=== PATIENT | male | born 1985 | race African-American/Black ===

== ENCOUNTER 2016-06-12 00:32 | Emergency (ER) | payer MEDICAID ==
[~2016-06-12] VITALS: Ht 170.2 cm; Wt 68.0 kg
[2016-06-12 01:38] LABS: BASOPHILS % 0.9 % (0.0-2.0); DIFFERENTIAL COMMENT 0; EOSINOPHILS % 0.6 % (0.0-5.0); HEMATOCRIT. 38.9 % (42.0-52.0); LYMPHOCYTES % 25.5 % (20.0-50.0); MEAN CORPUSCULAR HEMOGLOBIN 33.7 pg (28.0-32.0); MEAN CORPUSCULAR HGB CONC 33.4 g/dL (31.0-37.0); MEAN CORPUSCULAR VOLUME 100.8 fL (80.0-94.0); MEAN PLATELET VOLUME 8.4 fl (7.4-10.4); MONOCYTES % 6.4 % (2.0-8.0); NEUTROPHILS % 66.6 % (40.0-76.0); PLATELET 228 x1000/uL (130-400); RED BLOOD CELL COUNT 3.86 mill/uL (4.7-6.1); RED CELL DISTRIBUTION WIDTH 14.3 % (11.6-14.6)
[2016-06-12 01:42] LABS: CHLORIDE 104 mEq/L (98-107); INDEX HEMOLYSI 1 (1-3); INDEX ICTERIC 1 (1-4); INDEX LIPEMIC 1 (1-3)
[2016-06-12 01:49] LABS: ANION GAP 11; CALCIUM 8.5 mg/dL (8.5-10.1); CARBON DIOXIDE 28 mEq/L (21-32); UREA NITROGEN BLOOD 19 mg/dL (7-21); eGFR > 60 mL/min (>60)
[2016-06-12 07:30] VITALS: BP 124/60
== END 2016-06-12 10:17 | disposition home or self-care (01) ==
LOC: ER 00:32
DX: M79.602 Pain in left arm (principal); R10.9 Unspecified abdominal pain; R07.9 Chest pain, unspecified; M79.601 Pain in right arm; M79.605 Pain in left leg; M79.604 Pain in right leg; F12.10 Cannabis abuse, uncomplicated
CPT/HCPCS: 36415; 80048; 85025; 99284

== ENCOUNTER 2016-06-12 20:26 | Emergency (ER) | payer MEDICAID ==
[~2016-06-12] VITALS: Ht 170.2 cm; Wt 70.0 kg
[2016-06-12] MEDS ORDERED: SODIUM CHLORIDE 0.9% 1,000 ML IV ONE (21:20)
[2016-06-12 21:30] VITALS: BP 117/70
[2016-06-12] MEDS ORDERED: HYDROCODONE/ACETAMINOPHEN 5/325MG TABLET PO ONE (21:30)
[2016-06-12 21:43] LABS: BASOPHILS % 0.8 % (0.0-2.0); DIFFERENTIAL COMMENT 0; EOSINOPHILS % 0.2 % (0.0-5.0); HEMATOCRIT. 38.4 % (42.0-52.0); MEAN CORPUSCULAR HEMOGLOBIN 34.3 pg (28.0-32.0); MEAN CORPUSCULAR HGB CONC 33.8 g/dL (31.0-37.0); MEAN CORPUSCULAR VOLUME 101.5 fL (80.0-94.0); MEAN PLATELET VOLUME 8.4 fl (7.4-10.4); MONOCYTES % 8.2 % (2.0-8.0); NEUTROPHILS % 68.8 % (40.0-76.0); PLATELET 242 x1000/uL (130-400); RED BLOOD CELL COUNT 3.79 mill/uL (4.7-6.1); RED CELL DISTRIBUTION WIDTH 14.4 % (11.6-14.6); WHITE BLOOD COUNT 10.6 x1000/uL (4.5-11.0)
[2016-06-12 21:59] LABS: ALANINE AMINOTRANSFERASE 29 IU/L (13-61); ANION GAP 13; CALCIUM 8.7 mg/dL (8.5-10.1); CARBON DIOXIDE 28 mEq/L (21-32); CHLORIDE 102 mEq/L (98-107); INDEX HEMOLYSI 1 (1-3); INDEX ICTERIC 1 (1-4); INDEX LIPEMIC 1 (1-3); UREA NITROGEN BLOOD 13 mg/dL (7-21); eGFR > 60 mL/min (>60)
[2016-06-12 22:09] LABS: VALPROIC ACID < 3.0 ug/mL (50-100)
[2016-06-13] MEDS ORDERED: LEVETIRACETAM 500MG TABLET PO ONE (01:30)
== END 2016-06-13 03:44 | disposition home or self-care (01) ==
LOC: ER 20:27
DX: G40.909 Epilepsy, unspecified, not intractable, without status epilepticus (principal); M25.532 Pain in left wrist; R51 Headache; M79.672 Pain in left foot; W19.XXXA Unspecified fall, initial encounter; Y93.89 Activity, other specified; Y92.89 Other specified places as the place of occurrence of the external cause; Y99.9 Unspecified external cause status
CPT/HCPCS: 36415; 70450; 70486; 71010; 73110; 73630; 80053; 80165; 85025; 93005; 99285; J7030; Z7610

== ENCOUNTER 2016-06-23 01:37 | Emergency (ER) | payer MEDICAID ==
[~2016-06-23] VITALS: Ht 177.8 cm; Wt 72.0 kg
[2016-06-23] MEDS ORDERED: KETOROLAC 60MG/2ML VIAL IM ONE (05:00)
[2016-06-23] MEDS ORDERED: CYCLOBENZAPRINE 10MG TABLET PO ONE (05:00)
[2016-06-23] MEDS ORDERED: IBUPROFEN 600MG TABLET PO ONE (11:45)
[2016-06-23 12:14] VITALS: BP 112/81
== END 2016-06-23 13:02 | disposition home or self-care (01) ==
LOC: ER 01:55
DX: R51 Headache (principal); M25.522 Pain in left elbow; M79.641 Pain in right hand; G40.909 Epilepsy, unspecified, not intractable, without status epilepticus; F41.9 Anxiety disorder, unspecified; F17.210 Nicotine dependence, cigarettes, uncomplicated; F12.10 Cannabis abuse, uncomplicated; Z59.0 Homelessness
CPT/HCPCS: 73080; 73130; 96372; 99284; J1885

== ENCOUNTER 2016-06-23 20:07 | Emergency (ER) | payer MEDICAID ==
[~2016-06-23] VITALS: Ht 175.3 cm; Wt 75.0 kg
[2016-06-23 20:22] VITALS: BP 122/83
[2016-06-23] MEDS ORDERED: LEVETIRACETAM 500MG TABLET PO ONE (22:30)
== END 2016-06-23 22:47 | disposition left against medical advice (07) ==
LOC: ER 20:07
DX: Z04.8 Encounter for examination and observation for other specified reasons (principal); F41.9 Anxiety disorder, unspecified; F31.9 Bipolar disorder, unspecified; G40.909 Epilepsy, unspecified, not intractable, without status epilepticus; F12.10 Cannabis abuse, uncomplicated; Z59.0 Homelessness; Z91.14 Patient's other noncompliance with medication regimen
CPT/HCPCS: 99283

== ENCOUNTER 2016-10-31 22:33 | Emergency (ER) | payer MEDICAID ==
[~2016-10-31] VITALS: Ht 170.2 cm; Wt 69.9 kg
[2016-10-31 22:44] VITALS: BP 118/79
== END 2016-10-31 23:32 | disposition left against medical advice (07) ==
LOC: ER 22:44
DX: F41.9 Anxiety disorder, unspecified (principal); Z53.21 Procedure and treatment not carried out due to patient leaving prior to being seen by health care provider

== ENCOUNTER 2017-04-05 05:14 | Emergency (ER) | payer MEDICAID ==
[~2017-04-05] VITALS: Ht 182.9 cm; Wt 79.0 kg
[2017-04-05] MEDS ORDERED: ONDANSETRON HCL 4MG/2ML VIAL IV STA (08:38)
[2017-04-05] MEDS ORDERED: SODIUM CHLORIDE 0.9% 1,000 ML IV ONE (08:38)
[2017-04-05 09:04] LABS: HEMATOCRIT. 45.6 % (42.0-52.0); HEMOGLOBIN. 15.2 g/dL (14.0-18.0); MEAN CORPUSCULAR HEMOGLOBIN 32.8 pg (28.0-32.0); MEAN CORPUSCULAR VOLUME 98.5 fL (80.0-94.0); MEAN PLATELET VOLUME 8.6 fl (7.4-10.4); PLATELET 283 x1000/uL (130-400); RED BLOOD CELL COUNT 4.63 mill/uL (4.7-6.1); RED CELL DISTRIBUTION WIDTH 15.5 % (11.6-14.6)
[2017-04-05 09:07] LABS: CHLORIDE 102 mEq/L (98-107)
[2017-04-05 09:09] LABS: INR 1.1; PROTHROMBIN TIME 11.7 sec (9.4-11.6)
[2017-04-05 09:17] LABS: CARBON DIOXIDE 25 mEq/L (21-32)
[2017-04-05 09:36] LABS: PLATELET ESTIMATE NORMAL
[2017-04-05] MEDS ORDERED: FAMOTIDINE 20MG TABLET PO ONE (10:45)
[2017-04-05] MEDS ORDERED: KETOROLAC 30MG/ML VIAL IV ONE (10:45)
[2017-04-05 11:13] LABS: CLARITY URINE CLEAR (CLEAR); COLOR URINE DARK YELLOW (YELLOW); KETONES URINE 3+ (NEGATIVE); LEUKOCYTE ESTERASE URINE TRACE (NEGATIVE); NITRITE URINE NEGATIVE (NEGATIVE); OCCULT BLOOD URINE NEGATIVE (NEGATIVE); PH URINE >=9.0 (4.5-8.0); PROTEIN URINE 2+ (NEGATIVE); SPECIFIC GRAVITY URINE 1.034 (1.005-1.030)
[2017-04-05 11:22] VITALS: BP 127/66
== END 2017-04-05 12:40 | disposition home or self-care (01) ==
LOC: ER 05:14
DX: R17 Unspecified jaundice (principal)
CPT/HCPCS: 36415; 80053; 81001; 83690; 85025; 85610; 96361; 96374; 96375; 99284; J1885; J2405; J7030

== ENCOUNTER 2017-07-05 16:21 | Emergency (ER) | payer MEDICAID ==
[~2017-07-05] VITALS: Ht 175.3 cm; Wt 75.0 kg
[2017-07-05] MEDS ORDERED: LIDOCAINE HCL/EPINEPHRINE 1%-EPI 1:100,000 20 ML VIAL INFIL ONE (17:30)
[2017-07-05] MEDS ORDERED: BACITRACIN ZINC OINT UDPKT TOP ONE (17:30)
[2017-07-05 19:23] VITALS: BP 134/88
== END 2017-07-05 20:13 | disposition home or self-care (01) ==
LOC: ER 16:33
DX: S01.81XA Laceration without foreign body of other part of head, initial encounter (principal); G40.909 Epilepsy, unspecified, not intractable, without status epilepticus; F12.10 Cannabis abuse, uncomplicated; W19.XXXA Unspecified fall, initial encounter; Y93.89 Activity, other specified; Y92.89 Other specified places as the place of occurrence of the external cause; Y99.8 Other external cause status
CPT/HCPCS: 12013; 70450; 99284; J3490; Z7610

== ENCOUNTER 2017-07-14 10:46 | Emergency (ER) | payer MEDICAID ==
[~2017-07-14] VITALS: Ht 170.2 cm; Wt 66.0 kg
[2017-07-14 12:38] VITALS: BP 123/84
== END 2017-07-14 12:40 | disposition home or self-care (01) ==
LOC: ER 10:46
DX: Z48.02 Encounter for removal of sutures (principal); L03.211 Cellulitis of face; G40.909 Epilepsy, unspecified, not intractable, without status epilepticus
CPT/HCPCS: 99283; Z7610

== ENCOUNTER 2017-07-15 16:50 | Emergency (ER) | payer MEDICAID ==
[~2017-07-15] VITALS: Ht 175.3 cm; Wt 80.0 kg
[2017-07-15] MEDS ORDERED: KETOROLAC 30MG/ML VIAL IV STA (17:28)
[2017-07-15] MEDS ORDERED: SODIUM CHLORIDE 0.9% 1,000 ML IV ONE (17:28)
[2017-07-15] MEDS ORDERED: ONDANSETRON HCL 4MG/2ML VIAL IV STA ×2 (17:28→20:50)
[2017-07-15] MEDS ORDERED: CAPSAICIN 0.075% CREAM 60GM TOP PRN (17:30)
[2017-07-15 18:01] LABS: BASOPHILS % 0.3 % (0.0-2.0); EOSINOPHILS % 0.1 % (0.0-5.0); HEMATOCRIT. 43.2 % (42.0-52.0); HEMOGLOBIN. 15.2 g/dL (14.0-18.0); LYMPHOCYTES % 10.3 % (20.0-50.0); MEAN CORPUSCULAR HEMOGLOBIN 34.9 pg (28.0-32.0); MEAN CORPUSCULAR VOLUME 99.7 fL (80.0-94.0); MEAN PLATELET VOLUME 8.8 fl (7.4-10.4); MONOCYTES % 6.2 % (2.0-8.0); NEUTROPHILS % 83.1 % (40.0-76.0); PLATELET 282 x1000/uL (130-400); RED BLOOD CELL COUNT 4.34 mill/uL (4.7-6.1); RED CELL DISTRIBUTION WIDTH 12.8 % (11.6-14.6)
[2017-07-15 18:06] LABS: CHLORIDE 102 mEq/L (98-107); INR 1.1; PROTHROMBIN TIME 11.5 sec (9.4-11.6)
[2017-07-15 18:09] LABS: ETHANOL BLOOD < 10 mg/dL
[2017-07-15] MEDS ORDERED: MORPHINE SULFATE 4 MG/ML CPJ (NOT FOR IM USE) IV STA (20:50)
[2017-07-15] MEDS ORDERED: HALOPERIDOL LACTATE 5MG/ML VIAL IM ONE (23:30)
[2017-07-16 00:09] VITALS: BP 126/79
== END 2017-07-16 01:22 | disposition home or self-care (01) ==
LOC: ER 16:54
DX: R10.9 Unspecified abdominal pain (principal); R11.2 Nausea with vomiting, unspecified; F17.200 Nicotine dependence, unspecified, uncomplicated
CPT/HCPCS: 36415; 74176; 80053; 83690; 85025; 85610; 96361; 96372; 96374; 96375; 96376; 99285; G0482; J1630; J1885; J2270; J2405; J7030

== ENCOUNTER 2017-07-16 23:49 | Emergency (ER) | payer MEDICAID ==
[~2017-07-16] VITALS: Ht 172.7 cm; Wt 70.0 kg
[2017-07-17] MEDS ORDERED: KETOROLAC 30MG/ML VIAL IM ONE (01:15)
[2017-07-17 03:45] VITALS: BP 119/85
== END 2017-07-17 03:45 | disposition home or self-care (01) ==
LOC: ER 23:49
DX: M62.838 Other muscle spasm (principal); M54.2 Cervicalgia; M54.9 Dorsalgia, unspecified
CPT/HCPCS: 72040; 96372; 99284; J1885

== ENCOUNTER 2017-08-27 14:20 | Emergency (ER) | payer MEDICAID | END 2017-08-27 14:54 | disposition left against medical advice (07) | LOC: ER 14:29 | DX: R56.9 Unspecified convulsions (principal); Z53.21 Procedure and treatment not carried out due to patient leaving prior to being seen by health care provider ==

== ENCOUNTER 2017-11-24 11:11 | Emergency (ER) | payer MEDICAID ==
[~2017-11-24] VITALS: Ht 172.7 cm; Wt 70.0 kg
[2017-11-24 11:13] VITALS: BP 111/70
== END 2017-11-24 11:28 | disposition left against medical advice (07) ==
LOC: ER 11:11
DX: Z53.21 Procedure and treatment not carried out due to patient leaving prior to being seen by health care provider (principal)

== ENCOUNTER 2018-06-13 02:47 | Emergency (ER) | payer MEDICAID ==
[~2018-06-13] VITALS: Ht 172.7 cm; Wt 70.0 kg
[2018-06-13 04:48] LABS: BASOPHILS % 0.3 % (0.0-2.0); EOSINOPHILS % 0.5 % (0.0-5.0); HEMATOCRIT. 38.1 % (42.0-52.0); HEMOGLOBIN. 12.8 g/dL (14.0-18.0); LYMPHOCYTES % 31.2 % (20.0-50.0); MEAN CORPUSCULAR HEMOGLOBIN 34.4 pg (28.0-32.0); MEAN CORPUSCULAR VOLUME 102.3 fL (80.0-94.0); MEAN PLATELET VOLUME 8.2 fl (7.4-10.4); MONOCYTES % 7.1 % (2.0-8.0); NEUTROPHILS % 60.9 % (40.0-76.0); PLATELET 234 x1000/uL (130-400); RED BLOOD CELL COUNT 3.72 mill/uL (4.7-6.1); RED CELL DISTRIBUTION WIDTH 13.2 % (11.6-14.6)
[2018-06-13 04:51] LABS: CHLORIDE 101 mEq/L (98-107)
[2018-06-13 04:56] LABS: ETHANOL BLOOD < 10 mg/dL
[2018-06-13] MEDS ORDERED: KETOROLAC 60MG/2ML VIAL IM STA (07:01)
[2018-06-13 09:14] LABS: CLARITY URINE CLEAR (CLEAR); KETONES URINE 2+ (NEGATIVE); LEUKOCYTE ESTERASE URINE NEGATIVE (NEGATIVE); NITRITE URINE NEGATIVE (NEGATIVE); OCCULT BLOOD URINE NEGATIVE (NEGATIVE); PROTEIN URINE 1+ (NEGATIVE); SPECIFIC GRAVITY URINE 1.039 (1.005-1.030)
[2018-06-13 09:15] LABS: COLOR URINE YELLOW (YELLOW)
[2018-06-13 09:28] VITALS: BP 128/85
[2018-06-13 09:30] LABS: *AMPHETAMINES SCREEN URINE NEGATIVE (NEGATIVE); *BARBITURATES SCREEN URINE NEGATIVE (NEGATIVE); *BENZODIAZEPINES SCREEN URINE NEGATIVE (NEGATIVE); *COCAINE SCREEN URINE NEGATIVE (NEGATIVE)
[2018-06-13 09:31] LABS: CANNABINOID URINE SCREEN PRESUMTIVE POSITIVE (NEGATIVE); METHADONE URINE SCREEN NEGATIVE (NEGATIVE); OPIATES URINE SCREEN PRESUMTIVE POSITIVE (NEGATIVE); PHENCYCLIDINE URINE SCREEN NEGATIVE (NEGATIVE)
== END 2018-06-13 09:52 | disposition home or self-care (01) ==
LOC: ER 02:47
DX: G40.909 Epilepsy, unspecified, not intractable, without status epilepticus (principal); M60.9 Myositis, unspecified; F12.10 Cannabis abuse, uncomplicated
CPT/HCPCS: 36415; 80053; 80305; 80320; 81003; 85025; 96372; 99283; J1885; Z7610; G0480

== ENCOUNTER 2018-07-06 16:11 | Emergency (ER) | payer MEDICAID ==
[~2018-07-06] VITALS: Ht 177.8 cm; Wt 73.0 kg
[2018-07-06] MEDS ORDERED: SODIUM CHLORIDE 0.9% 1,000 ML IV ONE (17:23)
[2018-07-06] MEDS ORDERED: MORPHINE SULFATE 4 MG/ML CPJ (NOT FOR IM USE) IV ONE (17:30)
[2018-07-06] MEDS ORDERED: ONDANSETRON HCL 4MG/2ML INJ IV ONE (17:30)
[2018-07-06 17:44] LABS: BASOPHILS % 0.3 % (0.0-2.0); EOSINOPHILS % 0.1 % (0.0-5.0); HEMATOCRIT. 41.1 % (42.0-52.0); MEAN PLATELET VOLUME 8.6 fl (7.4-10.4); MONOCYTES % 3.7 % (2.0-8.0); NEUTROPHILS % 86.9 % (40.0-76.0); PLATELET 228 x1000/uL (130-400); RED BLOOD CELL COUNT 4.12 mill/uL (4.7-6.1); RED CELL DISTRIBUTION WIDTH 13.5 % (11.6-14.6)
[2018-07-06 17:51] LABS: CHLORIDE 103 mEq/L (98-107)
[2018-07-06 17:54] LABS: ETHANOL BLOOD < 10 mg/dL
[2018-07-06 19:29] VITALS: BP 133/76
== END 2018-07-06 19:57 | disposition home or self-care (01) ==
LOC: ER 16:11
DX: T43.595A Adverse effect of other antipsychotics and neuroleptics, initial encounter (principal); E86.0 Dehydration; F10.129 Alcohol abuse with intoxication, unspecified; G40.909 Epilepsy, unspecified, not intractable, without status epilepticus; F12.10 Cannabis abuse, uncomplicated; Y90.0 Blood alcohol level of less than 20 mg/100 ml; Y92.018 Other place in single-family (private) house as the place of occurrence of the external cause
CPT/HCPCS: 36415; 80048; 80307; 80320; 80329; 83690; 85025; 93005; 96374; 96375; 99284; J2270; J2405; J7030; G0480

== ENCOUNTER 2019-10-03 03:39 | Emergency (ER) | payer MEDICAID ==
[~2019-10-03] VITALS: Ht 180.3 cm; Wt 69.0 kg
[2019-10-03 04:23] LABS: BASOPHILS % 0.4 % (0.0-2.0); EOSINOPHILS % 0.2 % (0.0-5.0); HEMATOCRIT. 42.8 % (42.0-52.0); LYMPHOCYTES % 26.7 % (20.0-50.0); MEAN CORPUSCULAR HEMOGLOBIN 34.2 pg (28.0-32.0); MEAN CORPUSCULAR VOLUME 97.6 fL (80.0-94.0); MEAN PLATELET VOLUME 8.9 fl (7.4-10.4); MONOCYTES % 12.6 % (2.0-8.0); NEUTROPHILS % 60.1 % (40.0-76.0); PLATELET 291 x1000/uL (130-400); RED BLOOD CELL COUNT 4.39 mill/uL (4.7-6.1); RED CELL DISTRIBUTION WIDTH 17.5 % (11.6-14.6)
[2019-10-03 04:26] LABS: CHLORIDE 87 mEq/L (98-107)
[2019-10-03 04:31] LABS: ETHANOL BLOOD < 10 mg/dL
[2019-10-03 05:17] VITALS: BP 134/79
== END 2019-10-03 05:19 | disposition home or self-care (01) ==
LOC: ER 03:54
DX: R56.9 Unspecified convulsions (principal); F31.9 Bipolar disorder, unspecified; F12.10 Cannabis abuse, uncomplicated; R45.6 Violent behavior
CPT/HCPCS: 36415; 80053; 80320; 85025; 99283; G0480

== ENCOUNTER 2019-10-03 05:23 | Emergency (ER) | payer MEDICAID ==
[~2019-10-03] VITALS: Ht 162.6 cm; Wt 59.0 kg
[2019-10-03] MEDS ORDERED: SODIUM CHLORIDE 0.9% 1,000 ML IV ONE (06:41)
[2019-10-03] MEDS ORDERED: LORAZEPAM 2MG/ML CPJ IV ONE (06:45)
[2019-10-03 07:38] LABS: BASOPHILS % 0.3 % (0.0-2.0); EOSINOPHILS % 0.2 % (0.0-5.0); HEMATOCRIT. 43.7 % (42.0-52.0); HEMOGLOBIN. 15.2 g/dL (14.0-18.0); LYMPHOCYTES % 31.8 % (20.0-50.0); MEAN CORPUSCULAR HEMOGLOBIN 33.8 pg (28.0-32.0); MEAN CORPUSCULAR VOLUME 97.5 fL (80.0-94.0); MEAN PLATELET VOLUME 9.3 fl (7.4-10.4); MONOCYTES % 11.9 % (2.0-8.0); NEUTROPHILS % 55.8 % (40.0-76.0); PLATELET 301 x1000/uL (130-400); RED BLOOD CELL COUNT 4.48 mill/uL (4.7-6.1); RED CELL DISTRIBUTION WIDTH 17.9 % (11.6-14.6)
[2019-10-03 07:40] LABS: CHLORIDE 86 mEq/L (98-107)
[2019-10-03 07:44] LABS: ETHANOL BLOOD < 10 mg/dL
[2019-10-03 08:13] LABS: CLARITY URINE CLEAR (CLEAR); COLOR URINE YELLOW (YELLOW); KETONES URINE 1+ (NEGATIVE); LEUKOCYTE ESTERASE URINE 1+ (NEGATIVE); NITRITE URINE NEGATIVE (NEGATIVE); OCCULT BLOOD URINE NEGATIVE (NEGATIVE); PH URINE 6.5 (4.5-8.0); PROTEIN URINE NEGATIVE (NEGATIVE); SPECIFIC GRAVITY URINE 1.013 (1.005-1.030)
[2019-10-03 08:27] LABS: *AMPHETAMINES SCREEN URINE NEGATIVE (NEGATIVE); *BARBITURATES SCREEN URINE NEGATIVE (NEGATIVE); *BENZODIAZEPINES SCREEN URINE PRESUMTIVE POSITIVE (NEGATIVE); *COCAINE SCREEN URINE NEGATIVE (NEGATIVE); METHADONE URINE SCREEN NEGATIVE (NEGATIVE); OPIATES URINE SCREEN NEGATIVE (NEGATIVE)
[2019-10-03 08:28] LABS: CANNABINOID URINE SCREEN PRESUMTIVE POSITIVE (NEGATIVE); PHENCYCLIDINE URINE SCREEN NEGATIVE (NEGATIVE)
[2019-10-03] MEDS ORDERED: POTASSIUM CHLORIDE 20MEQ TABLET SR PO ONE (08:45)
[2019-10-03] MEDS ORDERED: CEFTRIAXONE 1 G PREMIX 50 ML IV ONE (08:45)
[2019-10-03] MEDS ORDERED: KCL 10MEQ/50ML PREMIX 50 ML IV ONE (10:00)
[2019-10-03 16:38] VITALS: BP 116/78
== END 2019-10-03 16:52 | disposition home or self-care (01) ==
LOC: ER 06:03
DX: F29 Unspecified psychosis not due to a substance or known physiological condition (principal); N39.0 Urinary tract infection, site not specified; E87.6 Hypokalemia; F41.9 Anxiety disorder, unspecified; F31.9 Bipolar disorder, unspecified
CPT/HCPCS: 36415; 80053; 80305; 80320; 81003; 83735; 85025; 93005; 96361; 96365; 96367; 96375; 99285; J0696; J2060; J3480; J7030; G0480

== ENCOUNTER 2019-10-09 00:51 | Emergency (ER) | payer MEDICAID ==
[~2019-10-09] VITALS: Ht 167.6 cm; Wt 80.0 kg
[2019-10-09] MEDS ORDERED: SODIUM CHLORIDE 0.9% 1,000 ML IV ONE (01:18)
[2019-10-09] MEDS ORDERED: LEVETIRACETAM 1000MG/100ML 100 ML IV ONE (01:30)
[2019-10-09 01:36] LABS: CHLORIDE 103 mEq/L (98-107); HEMATOCRIT. 35.4 % (42.0-52.0); HEMOGLOBIN. 12.1 g/dL (14.0-18.0); MEAN CORPUSCULAR HEMOGLOBIN 34.1 pg (28.0-32.0); MEAN PLATELET VOLUME 8.4 fl (7.4-10.4); PLATELET 274 x1000/uL (130-400); RED BLOOD CELL COUNT 3.54 mill/uL (4.7-6.1); RED CELL DISTRIBUTION WIDTH 18.2 % (11.6-14.6)
[2019-10-09 01:40] LABS: ETHANOL BLOOD < 10 mg/dL
[2019-10-09 03:30] VITALS: BP 115/74
[2019-10-09 05:34] LABS: PLATELET ESTIMATE NORMAL
== END 2019-10-09 03:45 | disposition home or self-care (01) ==
LOC: ER 00:51
DX: R56.9 Unspecified convulsions (principal); F41.9 Anxiety disorder, unspecified; F31.9 Bipolar disorder, unspecified; F20.9 Schizophrenia, unspecified
CPT/HCPCS: 36415; 80053; 80320; 85025; 96365; 99284; J1953; J7030; 96366; G0480

== ENCOUNTER 2020-04-26 11:55 | Inpatient (IN) | payer MEDICAID, OTHER ==
[~2020-04-26] VITALS: Ht 170.2 cm; Wt 70.0 kg
[2020-04-26] MEDS ORDERED: ONDANSETRON HCL 4MG/2ML INJ IV STA ×2 (12:53→13:26)
[2020-04-26] MEDS ORDERED: MORPHINE SULFATE 4 MG/ML CPJ (NOT FOR IM USE) IV STA ×2 (12:53→13:26)
[2020-04-26] MEDS ORDERED: SODIUM CHLORIDE 0.9% 1,000 ML IV ONE (13:00)
[2020-04-26 13:08] LABS: BASOPHILS % 0.8 % (0.0-2.0); EOSINOPHILS % 0.6 % (0.0-5.0); HEMATOCRIT. 43.2 % (42.0-52.0); HEMOGLOBIN. 14.7 g/dL (14.0-18.0); LYMPHOCYTES % 20.3 % (20.0-50.0); MEAN CORPUSCULAR HEMOGLOBIN 33.4 pg (28.0-32.0); MEAN PLATELET VOLUME 9.6 fl (7.4-10.4); MONOCYTES % 7.5 % (2.0-8.0); NEUTROPHILS % 70.8 % (40.0-76.0); PLATELET 194 x1000/uL (130-400); RED CELL DISTRIBUTION WIDTH 16.4 % (11.6-14.6)
[2020-04-26 13:12] LABS: CHLORIDE 106 mEq/L (98-107)
[2020-04-26 13:16] LABS: ETHANOL BLOOD < 10 mg/dL
[2020-04-26 13:18] LABS: PARTIAL THROMBOPLASTIN TIME 25.1 sec (23.4-31.0); PROTHROMBIN TIME 10.9 sec (9.6-11.0)
[2020-04-26 13:25] LABS: VALPROIC ACID < 3.0 ug/mL (50-100)
[2020-04-26] MEDS ORDERED: KETOROLAC 15MG/ML VIAL IV ONE (15:30)
[2020-04-26] MEDS ORDERED: ONDANSETRON HCL 4MG/2ML INJ IV ONE (15:30)
[2020-04-26] MEDS ORDERED: IOHEXOL-300 100 ML BOTTLE ONE (15:52)
[2020-04-26 16:30] LABS: CLARITY URINE CLEAR (CLEAR); COLOR URINE YELLOW (YELLOW); KETONES URINE 2+ (NEGATIVE); LEUKOCYTE ESTERASE URINE NEGATIVE (NEGATIVE); NITRITE URINE NEGATIVE (NEGATIVE); OCCULT BLOOD URINE NEGATIVE (NEGATIVE); PH URINE >=9.0 (4.5-8.0); PROTEIN URINE 1+ (NEGATIVE)
[2020-04-26 16:51] LABS: *AMPHETAMINES SCREEN URINE NEGATIVE (NEGATIVE); *BARBITURATES SCREEN URINE NEGATIVE (NEGATIVE); *BENZODIAZEPINES SCREEN URINE NEGATIVE (NEGATIVE); *COCAINE SCREEN URINE NEGATIVE (NEGATIVE)
[2020-04-26 16:52] LABS: CANNABINOID URINE SCREEN PRESUMTIVE POSITIVE (NEGATIVE); METHADONE URINE SCREEN NEGATIVE (NEGATIVE); OPIATES URINE SCREEN PRESUMTIVE POSITIVE (NEGATIVE); PHENCYCLIDINE URINE SCREEN NEGATIVE (NEGATIVE)
[2020-04-26] MEDS ORDERED: CEFTRIAXONE 1 G PREMIX 50 ML IV ONE (18:15)
[2020-04-26] MEDS ORDERED: ACETAMINOPHEN 325MG TABLET PO PRN (22:00)
[2020-04-26] MEDS ORDERED: ONDANSETRON HCL 4MG/2ML INJ IV PRN ×2 (22:00→22:15)
[2020-04-26] MEDS ORDERED: DOCUSATE SODIUM 100MG CAPSULE PO PRN (22:00)
[2020-04-26] MEDS ORDERED: HYDROCODONE/ACETAMINOPHEN 5/325MG TABLET PO PRN (22:00)
[2020-04-26] MEDS ORDERED: IPRATROPIUM/ALBUTEROL 0.5-3(2.5)MG/3ML NEB NEB PRN (22:00)
[2020-04-26] MEDS ORDERED: MORPHINE SULFATE 2 MG/ML CPJ (NOT FOR IM USE) IV PRN (22:15)
[2020-04-26] MEDS ORDERED: SODIUM CHLORIDE 0.9% 1,000 ML IV SCH (22:30)
[2020-04-26 23:42] LABS: CHLORIDE 108 mEq/L (98-107)
[2020-04-26 23:50] LABS: CREATINE KINASE 318 IU/L (39-308)
[2020-04-26 23:53] LABS: CREATINE KINASE MB FRACTION 1.6 ng/mL (0.5-3.6)
[2020-04-27 05:09] LABS: BASOPHILS % 0.1 % (0.0-2.0); HEMATOCRIT. 38.5 % (42.0-52.0); HEMOGLOBIN. 12.9 g/dL (14.0-18.0); LYMPHOCYTES % 15.7 % (20.0-50.0); MEAN CORPUSCULAR VOLUME 98.2 fL (80.0-94.0); MEAN PLATELET VOLUME 9.5 fl (7.4-10.4); MONOCYTES % 8.1 % (2.0-8.0); NEUTROPHILS % 76.1 % (40.0-76.0); PLATELET 193 x1000/uL (130-400); RED BLOOD CELL COUNT 3.92 mill/uL (4.7-6.1); RED CELL DISTRIBUTION WIDTH 16.2 % (11.6-14.6)
[2020-04-27 05:21] LABS: LDL CHOLESTEROL 94 mg/dL (5-100)
[2020-04-27 05:22] LABS: CREATINE KINASE 330 IU/L (39-308)
[2020-04-27 05:24] LABS: HDL CHOLESTEROL 48 mg/dL (40-59)
[2020-04-27 05:26] LABS: CREATINE KINASE MB FRACTION 1.6 ng/mL (0.5-3.6)
[2020-04-27] MEDS ORDERED: HEPARIN 5000 UNITS/ML VIAL SUBCUT SCH (09:00)
[2020-04-27 10:00] VITALS: BP 118/73
== END 2020-04-27 11:24 | disposition left against medical advice (07) | DRG 249 ==
LOC: ER 12:02 → MICUSO 17:23 → EDBEDREQ 21:17 → ENRESERV 04-27 09:32 → 6EST 04-27 09:52
PROVIDERS: ADMIT Internal Medicine; ATTEND Internal Medicine
DX: K52.9 Noninfective gastroenteritis and colitis, unspecified (principal); F12.90 Cannabis use, unspecified, uncomplicated; K76.9 Liver disease, unspecified; Z53.21 Procedure and treatment not carried out due to patient leaving prior to being seen by health care provider; Z90.49 Acquired absence of other specified parts of digestive tract
CPT/HCPCS: 36415; 71045; 74177; 76705; 80048; 80053; 80061; 80165; 80305; 80320; 81003; 82105; 82550; 82553; 83880; 84443; 84484; 85025; 86850; 86900; 93005; 93970; 99285; J0696; J1885; J2270; J2405; J7030; Q9967; G0480

== ENCOUNTER 2020-08-18 22:16 | Emergency (ER) | payer MEDICAID, OTHER ==
[~2020-08-18] VITALS: Ht 177.8 cm; Wt 78.0 kg
[2020-08-18] MEDS ORDERED: METOCLOPRAMIDE HCL 10MG/2ML VIAL IV STA (22:47)
[2020-08-18] MEDS ORDERED: MORPHINE SULFATE 4 MG/ML CPJ (NOT FOR IM USE) IV STA (22:47)
[2020-08-18] MEDS ORDERED: FAMOTIDINE 20MG/2ML VIAL IV STA (22:47)
[2020-08-18] MEDS ORDERED: SODIUM CHLORIDE 0.9% 1,000 ML IV ONE (23:00)
[2020-08-18 23:24] LABS: BASOPHILS % 0.3 % (0.0-2.0); EOSINOPHILS % 0.4 % (0.0-5.0); HEMATOCRIT. 42.4 % (42.0-52.0); HEMOGLOBIN. 14.4 g/dL (14.0-18.0); LYMPHOCYTES % 19.8 % (20.0-50.0); MEAN CORPUSCULAR HEMOGLOBIN 33.6 pg (28.0-32.0); MEAN CORPUSCULAR VOLUME 98.5 fL (80.0-94.0); MEAN PLATELET VOLUME 9.6 fl (7.4-10.4); MONOCYTES % 5.9 % (2.0-8.0); NEUTROPHILS % 73.6 % (40.0-76.0); PLATELET 215 x1000/uL (130-400); RED CELL DISTRIBUTION WIDTH 15.4 % (11.6-14.6)
[2020-08-18 23:25] LABS: CHLORIDE 104 mEq/L (98-107)
[2020-08-18 23:45] LABS: VALPROIC ACID < 3.0 ug/mL (50-100)
[2020-08-19] MEDS ORDERED: ONDANSETRON HCL 4MG/2ML INJ IV ONE (01:00)
[2020-08-19] MEDS ORDERED: MIDAZOLAM HCL 2 MG/2 ML VIAL IV ONE (01:00)
[2020-08-19] MEDS ORDERED: ONDANSETRON HCL 4MG/2ML INJ IV PRN (04:45)
[2020-08-19] MEDS ORDERED: MORPHINE SULFATE 2 MG/ML CPJ (NOT FOR IM USE) IV PRN (04:45)
[2020-08-19 08:41] VITALS: BP 97/59
[2020-08-19] MEDS ORDERED: LORAZEPAM 2MG/ML CPJ IV PRN (08:45)
[2020-08-19] MEDS ORDERED: LEVETIRACETAM 500MG TABLET PO SCH (09:00)
== END 2020-08-19 08:42 | disposition left against medical advice (07) ==
LOC: ER 22:16 → CANBEDREQ 08-19 15:15
DX: G40.909 Epilepsy, unspecified, not intractable, without status epilepticus (principal); R10.13 Epigastric pain
CPT/HCPCS: 36415; 80053; 80165; 83690; 85025; 96361; 96374; 96375; 96376; 99284; J2250; J2270; J2405; J2765; J3490; J7030

== ENCOUNTER 2020-09-16 19:02 | Emergency (ER) | payer MEDICAID, OTHER ==
[~2020-09-16] VITALS: Ht 172.7 cm; Wt 64.0 kg
[2020-09-16] MEDS ORDERED: KETOROLAC 30MG/ML VIAL IV STA (21:09)
[2020-09-16] MEDS ORDERED: ONDANSETRON HCL 4MG/2ML INJ IV STA (21:09)
[2020-09-16] MEDS ORDERED: SODIUM CHLORIDE 0.9% 1,000 ML IV ONE (21:15)
[2020-09-16 22:01] LABS: BASOPHILS % 0.4 % (0.0-2.0); HEMATOCRIT. 37.6 % (42.0-52.0); HEMOGLOBIN. 12.7 g/dL (14.0-18.0); LYMPHOCYTES % 9.1 % (20.0-50.0); MEAN CORPUSCULAR VOLUME 97.5 fL (80.0-94.0); MEAN PLATELET VOLUME 9.2 fl (7.4-10.4); MONOCYTES % 5.2 % (2.0-8.0); NEUTROPHILS % 85.3 % (40.0-76.0); PLATELET 224 x1000/uL (130-400); RED BLOOD CELL COUNT 3.86 mill/uL (4.7-6.1)
[2020-09-16 22:08] LABS: CHLORIDE 104 mEq/L (98-107)
[2020-09-16 22:12] LABS: ETHANOL BLOOD < 10 mg/dL
[2020-09-16] MEDS ORDERED: KETOROLAC 15MG/ML VIAL IV ONE (22:45)
[2020-09-16] MEDS ORDERED: DICYCLOMINE HCL 10MG CAPSULE PO ONE (22:45)
[2020-09-16] MEDS ORDERED: LORAZEPAM 2MG/ML CPJ IM ONE (22:45)
[2020-09-16 22:46] LABS: PROTHROMBIN TIME 11.2 sec (9.6-11.0)
[2020-09-16] MEDS ORDERED: MORPHINE SULFATE 4 MG/ML CPJ (NOT FOR IM USE) IV ONE (23:45)
[2020-09-16] MEDS ORDERED: ONDANSETRON HCL 4MG/2ML INJ IV ONE (23:45)
[2020-09-17 01:08] LABS: CLARITY URINE CLEAR (CLEAR); COLOR URINE DARK YELLOW (YELLOW); KETONES URINE 1+ (NEGATIVE); LEUKOCYTE ESTERASE URINE TRACE (NEGATIVE); NITRITE URINE NEGATIVE (NEGATIVE); OCCULT BLOOD URINE NEGATIVE (NEGATIVE); PH URINE 7.5 (4.5-8.0); PROTEIN URINE 1+ (NEGATIVE)
[2020-09-17] MEDS ORDERED: DICY20TA11 MT (01:09)
[2020-09-17] MEDS ORDERED: IBUP-2029 MT (01:09)
[2020-09-17] MEDS ORDERED: ONDA4TAB5 MT (01:09)
[2020-09-17 01:23] LABS: *AMPHETAMINES SCREEN URINE NEGATIVE (NEGATIVE)
[2020-09-17 01:25] LABS: *BARBITURATES SCREEN URINE NEGATIVE (NEGATIVE); *BENZODIAZEPINES SCREEN URINE NEGATIVE (NEGATIVE); *COCAINE SCREEN URINE NEGATIVE (NEGATIVE); METHADONE URINE SCREEN NEGATIVE (NEGATIVE); OPIATES URINE SCREEN PRESUMTIVE POSITIVE (NEGATIVE)
[2020-09-17 01:26] LABS: CANNABINOID URINE SCREEN PRESUMTIVE POSITIVE (NEGATIVE); PHENCYCLIDINE URINE SCREEN NEGATIVE (NEGATIVE)
[2020-09-17 02:50] VITALS: BP 130/82
== END 2020-09-17 03:11 | disposition home or self-care (01) ==
LOC: ER 19:02
DX: R10.84 Generalized abdominal pain (principal); R11.2 Nausea with vomiting, unspecified; R19.7 Diarrhea, unspecified; D72.829 Elevated white blood cell count, unspecified; F12.10 Cannabis abuse, uncomplicated; Z90.49 Acquired absence of other specified parts of digestive tract
CPT/HCPCS: 36415; 74176; 80053; 80305; 80320; 81003; 83690; 85025; 85610; 96361; 96372; 96374; 96375; 96376; 99285; J1885; J2060; J2270; J2405; J7030; G0480